=== PATIENT | female | born 1985 | race Caucasian/White ===

== ENCOUNTER 2022-03-22 07:14 | Emergency (ER) | payer BC ==
[~2022-03-22 07:14] MED LIST: ZOFRAN4 M1 PO
[2022-03-22] MEDS ORDERED: TOPCARE OMEPRAZ20 MG PO (07:21)
[2022-03-22 08:34] LABS: POTASSIUM 3.5 mmol/L (3.5-5.1)
[2022-03-22 08:35] LABS: CALCIUM 9.4 mg/dL (8.3-10.5)
[2022-03-22 08:36] LABS: TOTAL PROTEIN 6.7 g/dL (6.4-8.3)
[2022-03-22 08:38] LABS: TOTAL BILIRUBIN 0.9 mg/dL (0.2-1.2)
[2022-03-22 08:45] LABS: HEMATOCRIT 38.3 % (37.0-47.0); HEMOGLOBIN 13.1 g/dL (12.5-16.0); MEAN CELL VOLUME 89 fl (78-100); MEAN CORPUSCULAR HEMOGLOBIN 30 pg (27-31); MEAN CORPUSCULAR HGB CONC 34 g/dL (33-37); MEAN PLATELET VOLUME 11.4 fl (7.4-10.4); PLATELET COUNT 110 K/mm3 (130-400); RED BLOOD COUNT 4.33 M/mm3 (4.10-5.30); RED CELL DISTRIBUTION WIDTH 12.1 % (11.5-14.5)
[2022-03-22 09:15] LABS: BAND 8 % (0-10); LYMPHOCYTE 54 % (20-51); MONOCYTE 6 % (3-10); NEUTROPHILS 27 % (42-75)
[2022-03-22] MEDS ORDERED: PEPCID 20MG TAB20 MG PO (10:20)
[2022-03-22] MEDS ORDERED: OMEPRAZOLE40 MG PO (10:20)
[2022-03-22] MEDS ORDERED: CARAFATE1 GM/10 M1 PO (10:20)
[2022-03-22 11:00] VITALS: BP 126/89
== END 2022-03-22 10:40 | disposition home or self-care (01) ==
LOC: ED 07:14
PROVIDERS: Physician Assistant
DX: K52.9 Noninfective gastroenteritis and colitis, unspecified (principal); E86.0 Dehydration; K21.9 Gastro-esophageal reflux disease without esophagitis; Z28.310 Unvaccinated for COVID-19
CPT/HCPCS: C9113; J7030

== ENCOUNTER 2022-04-11 10:58 | Outpatient (RCR) | payer BC ==
[2022-04-08 10:37] VITALS: BP 113/84
[~2022-04-11] VITALS: Ht 170.2 cm; Wt 68.2 kg
[~2022-04-11 10:58] MED LIST changes: +CARAFATE1 GM/10 M1 PO; +OMEPRAZOLE40 MG PO; +PEPCID 20MG TAB20 MG PO; +TOPCARE OMEPRAZ20 MG PO
[2022-04-11 11:10] VITALS: BP 123/73
== END 2022-04-28 | disposition home or self-care (01) ==
LOC: AMSURD
DX: E86.0 Dehydration (principal)
CPT/HCPCS: J1644; J7030

== ENCOUNTER 2022-05-25 12:49 | Outpatient (RCR) | payer BC ==
[2022-04-30 10:19] VITALS: BP 95/66
[2022-04-30 11:31] VITALS: BP 106/71
[2022-05-03 10:22] VITALS: BP 115/82
[2022-05-03 12:40] VITALS: BP 110/70
[2022-05-23 11:41] VITALS: BP 105/77
[~2022-05-25] VITALS: Ht 170.2 cm; Wt 65.0 kg
[2022-05-25 13:13] VITALS: BP 105/74
[2022-06-10] MEDS ORDERED: ESCITALOPRAM10 MG PO (10:45)
[2022-06-10] MEDS ORDERED: DECADRON 4MG TAB4 MG PO (10:46)
[2022-06-10] MEDS ORDERED: LOMOTIL TAB 01 UDTAB PO (10:46)
== END 2022-05-29 | disposition home or self-care (01) ==
LOC: AMSURD
DX: E86.0 Dehydration (principal)
CPT/HCPCS: J1644; J7030

== ENCOUNTER 2022-06-13 10:06 | Outpatient (RCR) | payer BC ==
[2022-06-10 10:30] VITALS: BP 113/71
[~2022-06-13] VITALS: Ht 170.2 cm; Wt 65.0 kg
[~2022-06-13 10:06] MED LIST changes: +DECADRON 4MG TAB4 MG PO; +ESCITALOPRAM10 MG PO; +LOMOTIL TAB 01 UDTAB PO
[2022-06-13 10:30] VITALS: BP 110/81
== END 2022-06-29 | disposition still patient (30) ==
LOC: AMSURD
DX: E86.0 Dehydration (principal)
CPT/HCPCS: J1644; J7030